=== PATIENT | female | born 1975 | race Caucasian/White ===

== ENCOUNTER 2021-10-09 10:12 | Outpatient (CLI) | payer BC | END 2021-10-09 10:13 | disposition home or self-care (01) | LOC: CSHMAMMO 10:12 | PROVIDERS: ATTEND Obstetrics & Gynecology | DX: Z12.31 Encounter for screening mammogram for malignant neoplasm of breast (principal) | CPT/HCPCS: 77063; 77067 ==

== ENCOUNTER 2022-10-10 08:57 | Outpatient (CLI) | payer BC | END 2022-10-10 08:58 | disposition home or self-care (01) | LOC: CSHMAMMO 08:57 | PROVIDERS: ATTEND Nurse Practitioner Family | DX: Z12.31 Encounter for screening mammogram for malignant neoplasm of breast (principal) | CPT/HCPCS: 77063; 77067 ==

== ENCOUNTER 2023-09-20 10:12 | Outpatient (CLI) | payer BC ==
[2023-09-20] MEDS ORDERED: Iopamidol 300 61% 100 ML VIAL FS ONE (10:48)
== END 2023-09-20 10:13 | disposition home or self-care (01) ==
LOC: CSHCT 10:12
PROVIDERS: ATTEND Internal Medicine Gastroenterology
DX: R10.13 Epigastric pain (principal); K59.00 Constipation, unspecified; K76.9 Liver disease, unspecified; N28.9 Disorder of kidney and ureter, unspecified; Z90.49 Acquired absence of other specified parts of digestive tract; N94.89 Other specified conditions associated with female genital organs and menstrual cycle; I31.39 Other pericardial effusion (noninflammatory)
CPT/HCPCS: 74177; Q9967

== ENCOUNTER 2023-10-11 09:10 | Outpatient (CLI) | payer BC | END 2023-10-11 09:11 | disposition home or self-care (01) | LOC: CSHMAMMO 09:10 | PROVIDERS: ATTEND Nurse Practitioner Family | DX: Z12.31 Encounter for screening mammogram for malignant neoplasm of breast (principal) | CPT/HCPCS: 77063; 77067 ==